=== PATIENT | female | born 1985 | race Caucasian/White ===

== ENCOUNTER 2023-05-09 14:40 | Emergency (ER) | payer OTHER, SELFPAY ==
[2023-05-09 14:42] VITALS: BP 130/87
[2023-05-09 15:12] LABS: COVID-19 Antigen Negative (Negative)
[2023-05-09 17:16] VITALS: BP 127/76
[2023-05-09 17:18] VITALS: BMI 32.7
[2023-05-09 17:21] VITALS: BP 127/76
--- NOTE | 2023-05-09 17:28 | ED.GENMED ---
History of Present Illness
General
Chief Complaint: Cough
Source: patient
Exam Limitations: none
Time Seen by Provider: 05/09/23 17:03
Nursing documentation reviewed up to this point in time: agreed with
Travel History
Have you had any contact with someone who has COVID-19?: No
Do you have any symptoms of coronavirus? Fever > 100 degrees, chills, cough, shortness of breath, sore throat, loss of taste or smell, muscle aches, or headache?: No
History of Present Illness
History of Present Illness:
Patient to ED with complaint of chest congestion and cough for the past month. Now with upper back pain. Denies fever/chills. Reports thick yllow secretions. Brought self to ED for eval.
Past History
Past History
ED Past Medical History: Asthma, Psychiatric (bipolar, depression, Anxiety, PTSD) and Other (Irregular, heavy menses, GI bleeding, PID. Migraines, herniated disc, chlamydia); Negative HTN, Hypercholesterolemia or NIDDM
ED Past Surgical History: Gynecological ( Total Hysterectomy) and Orthopedic (Jaw surgery)
Social History
Tobacco: Smoker
Alcohol: Daily ([place] 1)
Drug: None
Personal: Single
Living: with family
Employment: Employed
Family History
Family History: Other (Noncontributory)
Review of Systems
Review of Systems
Allergies reviewed?: Yes
All Other Systems: ROS reviewed and negative except as documented in HPI and ROS
Constitutional: Reports no symptoms
EENT: Reports no symptoms
Respiratory: Reports cough
Cardiac: Reports no symptoms
ABD/GI: Reports no symptoms
: Reports no symptoms
Musculoskeletal: Reports back pain (uppre back pain)
Skin: Reports no symptoms
Neurological: Reports no symptoms
Psychiatric: Reports no symptoms
Phy Exam
General Physical Exam
General Presentation: well appearing and no apparent distress
General age: appears stated age
General Skin: warm and dry
General Habitus: normal
Pulmonary Exam
Pulmonary Exam: lungs clear, no respiratory distress, no rales, chest non tender, no crackles, no rhonchi, no stridor and no wheezing
Gastrointestinal Exam
Gastrointestinal Exam: normal bowel sounds, non tender, soft and no organomegaly
Musculoskeletal Exam
Musculoskeletal Exam: full ROM and neuro vasc intact
Skin Exam
Skin Exam: normal color, warm/dry and no rash
Psychiatric Exam
Psychiatric Exam: normal mood/affect
Course
Orders/Labs/Results
Orders:
Orders
05/09/23 14:44
Chest [CR Chest - 2 Views ] Urgent
Comment:
Reason For Exam: cough
05/09/23 14:48
COVID-19 Antigen Urgent
Source: Nasal Swab
Influenza A+B Rapid Molecular Urgent
ERICK Source: Nasal Swab
Specimen Description:
05/09/23 17:26
Azithromycin [Zithromax] 500 mg PO NOW STA
Vital Signs
Initial and Last Documented VS:
Initial Vital Signs
Temp Pulse Resp BP Pulse Ox
98.7 F 84 18 130/87 100
05/09/23 14:42 05/09/23 14:42 05/09/23 14:42 05/09/23 14:42 05/09/23 14:42
Last Documented Vital Signs
Temp Pulse Resp BP Pulse Ox
98.3 F 80 18 127/76 98
05/09/23 17:21 05/09/23 17:21 05/09/23 17:21 05/09/23 17:21 05/09/23 17:21
*Critical Care Note
Total Time (30-74mins, 75-104mins- exclusive of procedures): Not Applicable
ED Attending Note
-
Portions of this chart may have been created with voice recognition software.� Occasional wrong word or��sound alike� substitutions may have occurred due to the inherent limitations of voice recognition software.
Discharge Plan
Departure
Patient Disposition: Home (Routine Discharge)
Date of Disposition: 05/09/23
Time of Disposition: 17:26
Patient with high blood pressure during this ER visit?: No
Condition: Good
Covid-19: Not Applicable
Discharge Problem:
Acute bronchitis
Instructions: Acute Bronchitis, Adult (DC)
Prescriptions:
New
azithromycin 250 mg tablet
250 mg PO DAILY 4 Days Qty: 4 0RF
No Action
lorazepam 1 MG tablet
1 mg PO PRN PRN (Reason: bedtime)
prednisone 50 MG tablet
50 mg PO Daily Qty: 4 0RF
prednisone 10 MG tablet
10 mg PO DAILY Qty: 45 0RF
Rx Instructions:
5 tabs for 3 days, 4 tabs for 3 days, 3 tabs for 3 days, 2 tabs for 3 days, 1 tab for 3 days
cephalexin 500 MG capsule
500 mg PO TID Qty: 30 0RF
prednisone 10 MG tablet
10 mg PO .TAPER Qty: 30 0RF
Rx Instructions:
Take 40mg daily x3days, 30mg daily x3days,
20mg daily x3days, 10mg daily x3days.
prednisone 50 mg tablet
50 mg PO DAILY Qty: 5 0RF
pantoprazole [Protonix] 40 mg tablet,delayed release (DR/EC)
40 mg PO DAILY Qty: 14 0RF
Interventions
Interventions:
*Risk Screen - Suicide Last Done: 05/09/23 14:42
*General Assessment Last Done: 05/09/23 14:42
*Neglect/Abuse Screening Last Done: 05/09/23 14:42
ED- Fall Risk Assessment Last Done: 05/09/23 17:19
*ED COVID-19 Vaccine History Last Done: 05/09/23 14:42
ED- Pulmonary Assessment Last Done: 05/09/23 17:18
[2023-05-09] MEDS: ZITHROMAX 500 MG PO (17:42)
== END 2023-05-09 17:50 | disposition home or self-care (01) ==
LOC: EMR 14:40
PROVIDERS: EMERGENCY PHYSICIAN Emergency Medicine
DX: J20.9 Acute bronchitis, unspecified (principal); F17.200 Nicotine dependence, unspecified, uncomplicated
CPT/HCPCS: 99284; 71046; 87502; 87811

== ENCOUNTER 2024-03-03 11:15 | Emergency (ER) | payer OTHER, SELFPAY ==
[2024-03-03 11:17] VITALS: BP 137/91
[2024-03-03 11:27] VITALS: BMI 29.6
--- NOTE | 2024-03-03 14:01 | ED.GENMED ---
History of Present Illness
General
Chief Complaint: Back Pain
Time Seen by Provider: 03/03/24 11:42
History of Present Illness
History of Present Illness:
38-year-old female presents to the emergency department for evaluation of low back pain ongoing for several days. Has a history of suspected lumbar disc disease however has never been evaluated with an MRI. Takes NSAIDs occasionally. Having
difficulty standing up from a seated position due to pain. Denies lower extremity paresthesias or saddle anesthesias, denies urinary incontinence or retention
Past History
Past History
ED Past Medical History: Asthma, Psychiatric (bipolar, depression, Anxiety, PTSD) and Other (Irregular, heavy menses, GI bleeding, PID. Migraines, herniated disc, chlamydia); Negative HTN, Hypercholesterolemia or NIDDM
ED Past Surgical History: Gynecological ( Total Hysterectomy) and Orthopedic (Jaw surgery)
Social History
Tobacco: Smoker
Alcohol: Daily ([place] 1)
Drug: None
Personal: Single
Living: with family
Employment: Employed
Family History
Family History: Other (Noncontributory)
Review of Systems
Review of Systems
Allergies reviewed?: Yes
All Other Systems: ROS reviewed and negative except as documented in HPI and ROS
Phy Exam
Physical Exam
Physical Exam:
GEN: Well appearing, NAD, WDWN
HEENT: Oral mucosa moist, no scleral icterus
Cardiac: Regular rate
Lung: No respiratory distress, no tachypnea
MSK: No gross deformity or injuries. Lumbar spine range of motion normal however with pain elicited throughout. Bilateral lower extremity strength is 5 out of 5 in all [place] and patellar reflexes are 2+ bilaterally
Skin: Good color, no pallor or jaundice, no rashes
Neuro: AO x3, moves all extremities freely
Psych: Calm, cooperative
Course
Orders/Labs/Results
Orders:
Orders
03/03/24 13:10
CR Lumbar Spine Comp Min 4 Vw* Urgent
Comment:
Reason For Exam: low back pain
Vital Signs
Initial and Last Documented VS:
Initial Vital Signs
Temp Pulse Resp BP Pulse Ox
98.0 F 85 16 137/91 96
03/03/24 11:17 03/03/24 11:17 03/03/24 11:17 03/03/24 11:17 03/03/24 11:17
Last Documented Vital Signs
Temp Pulse Resp BP Pulse Ox
98.0 F 85 16 137/91 96
03/03/24 11:17 03/03/24 11:17 03/03/24 11:17 03/03/24 11:17 03/03/24 11:17
MDM/Problems Addressed
MDM/Problems Addressed:
Imaging does suggest L3-L4 disc disease/degenerative disease, recommend outpatient pain and spine follow-up, supportive care discussed. No indication for urgent MRI
*Critical Care Note
Total Time (30-74mins, 75-104mins- exclusive of procedures): Not Applicable
ED Attending Note
-
Portions of this chart may have been created with voice recognition software.� Occasional wrong word or��sound alike� substitutions may have occurred due to the inherent limitations of voice recognition software.
Discharge Plan
Departure
Patient Disposition: Home (Routine Discharge)
Date of Disposition: 03/03/24
Time of Disposition: 14:02
Patient with high blood pressure during this ER visit?: No
Discharge Problem:
Degenerative disc disease, lumbar
Instructions: Low Back Pain (DC)
Prescriptions:
New
diclofenac sodium 75 mg tablet,delayed release (DR/EC)
75 mg PO BID Qty: 20 0RF
methocarbamol 750 mg tablet
750 - 1,500 mg PO HS Qty: 20 0RF
No Action
lorazepam 1 MG tablet
1 mg PO PRN PRN (Reason: bedtime)
prednisone 50 MG tablet
50 mg PO Daily Qty: 4 0RF
prednisone 10 MG tablet
10 mg PO DAILY Qty: 45 0RF
Rx Instructions:
5 tabs for 3 days, 4 tabs for 3 days, 3 tabs for 3 days, 2 tabs for 3 days, 1 tab for 3 days
cephalexin 500 MG capsule
500 mg PO TID Qty: 30 0RF
prednisone 10 MG tablet
10 mg PO .TAPER Qty: 30 0RF
Rx Instructions:
Take 40mg daily x3days, 30mg daily x3days,
20mg daily x3days, 10mg daily x3days.
prednisone 50 mg tablet
50 mg PO DAILY Qty: 5 0RF
pantoprazole [Protonix] 40 mg tablet,delayed release (DR/EC)
40 mg PO DAILY Qty: 14 0RF
azithromycin 250 mg tablet
250 mg PO DAILY 4 Days Qty: 4 0RF
Referrals:
Elmo Gil MD [Active] -
Jeffrey Resendez DO [Family Provider] -
Stand Alone Forms: Return to Work
Interventions
Interventions:
*Risk Screen - Suicide Last Done: 03/03/24 14:14
*Neglect/Abuse Screening Last Done: 03/03/24 14:14
*Nursing Disposition Last Done: 03/03/24 14:14
ED-Musculoskeletal Assessment Last Done: 03/03/24 11:27
Discharge Date and Time
Discharge Date/Time: 03/03/24 14:15
Print Language: [id number]
== END 2024-03-03 14:15 | disposition home or self-care (01) ==
LOC: EMR 11:15
PROVIDERS: EMERGENCY PHYSICIAN Emergency Medicine; FAMILY PHYSICIAN Family Medicine
DX: M51.369 Other intervertebral disc degeneration, lumbar region without mention of lumbar back pain or lower extremity pain (principal); Z73.6 Limitation of activities due to disability; F31.9 Bipolar disorder, unspecified; F41.9 Anxiety disorder, unspecified; J45.909 Unspecified asthma, uncomplicated; F43.10 Post-traumatic stress disorder, unspecified; G43.909 Migraine, unspecified, not intractable, without status migrainosus; F32.A Depression, unspecified; Z91.048 Other nonmedicinal substance allergy status
CPT/HCPCS: 99283; 72110